=== PATIENT | male | born 1940 | race Caucasian/White ===

== ENCOUNTER 2025-06-02 11:46 | Emergency (ER) | payer OTHER, MEDICARE ==
[2025-06-02 12:30] VITALS: RESP 20
--- NOTE | 2025-06-02 12:39 | ED ---
General Adult HPI - General Chief complaint: Fall Stated complaint: Fall on blood thinners Time Seen by Provider: 06/02/25 12:12 Source: patient, RN notes reviewed Mode of arrival: ambulatory Limitations: no limitations - History of Present Illness Initial comments: Patient is an 85-year-old male presenting to the emergency department following a fall. Patient states he fell, tripped on a rug. Patient struck the left side of his head. Patient may have lost consciousness. Patient did feel stunned for a few minutes. Patient does have some discomfort left side of the face near the eye. No weakness. No confusion. Patient did sustain laceration left eyelid. Unclear last tetanus immunization. Patient also has discomfort left wrist. - Related Data Allergies Allergy/AdvReac Type Severity Reaction Status Date / Time No Known Allergies Allergy Verified 06/02/25 12:18 Review of Systems ROS Statement: Those systems with pertinent positive or pertinent negative responses have been documented in the HPI. ROS Other: All systems not noted in ROS Statement are negative. Constitutional: Denies: fever Eyes: Reports: as per HPI. Denies: eye pain ENT: Denies: ear pain Respiratory: Denies: cough, dyspnea Cardiovascular: Denies: chest pain Endocrine: Denies: fatigue Gastrointestinal: Denies: abdominal pain Musculoskeletal: Reports: as per HPI. Denies: back pain Past Medical History Past Medical History: Unable to Obtain History of Any Multi-Drug Resistant Organisms: None Reported Past Surgical History: Unable to Obtain Past Psychological History: No Psychological Hx Reported Smoking Status: Never smoker Past Alcohol Use History: None Reported Past Drug Use History: None Reported General Exam Limitations: no limitations General appearance: alert Head exam: Present: other (Left forehead and facial ecchymosis. Swelling. Laceration left upper eyelid) Eye exam: Present: normal appearance, PERRL, EOMI ENT exam: Present: normal oropharynx, other (Left zygomatic region tenderness and swelling) Neck exam: Present: normal inspection. Absent: tenderness Respiratory exam: Present: normal lung sounds bilaterally Cardiovascular Exam: Present: regular rate, normal rhythm Expanded Peripheral pulses: 2+: Radial (L) GI/Abdominal exam: Present: soft. Absent: tenderness Extremities exam: Present: tenderness (Tenderness and swelling left wrist near the distal radius. Distal extremity is neurovascular intact.) Back exam: Present: normal inspection. Absent: tenderness, vertebral tenderness Neurological exam: Present: alert, oriented X3, CN II-XII intact. Absent: motor sensory deficit Psychiatric exam: Present: normal affect, normal mood Skin exam: Present: other (Facial ecchymosis) Course Vital Signs 06/02/25 06/02/25 12:16 13:31 Temperature 97.4 F L 98.1 F Pulse Rate 51 L 56 L Respiratory 20 20 Rate Blood Pressure 177/73 110/83 O2 Sat by Pulse 96 Oximetry Procedures - Laceration Laceration #1 Consent Obtained: verbal consent Indication: laceration Site: face (Left eyelid) Size (cm): 1 Description: linear Depth: simple, single layer Pre-repair: wound explored, irrigated extensively Type of Sutures: other (Closed with Dermabond) Patient Tolerated Procedure: well, no complications - Orthopedic Splinting/Casting Injury #1 Side: left Upper Extremity Injury Location: short arm Upper Extremity Immobilizer: volar splint, wrist splint Medical Decision Making - Medical Decision Making Was pt. sent in by a medical professional or institution (, PA, LEAD RIDER, urgent care, hospital, or [facility]...) When possible be specific @ -No Did you speak to anyone other than the patient for history (EMS, parent, family, police, friend...)? What history was obtained from this source @ -No Did you review nursing and triage notes (agree or disagree)? Why? @ -I reviewed and agree with nursing and triage notes Were old charts reviewed (outside hosp., previous admission, EMS record, old EKG, old radiological studies, urgent care reports/EKG's, [facility] records)? Report findings @ -No old charts were reviewed Differential Diagnosis (chest pain, altered mental status, abdominal pain women, abdominal pain men, vaginal bleeding, weakness, fever, dyspnea, syncope, headache, dizziness, GI bleed, back pain, seizure, CVA, palpatations, mental health, musculoskeletal)? @ -Differential Headache: Migraine, tension, cluster, carbon monoxide, central venous thrombosis, pension karma temporal arteritis, acute closure glaucoma, intercranial hemorrhage, mastoiditis, sinusitis, head injury, this is not meant to be an all-inclusive list. EKG interpreted by me (3pts min.). @ -As above X-rays interpreted by me (1pt min.). @ -Left wrist x-ray with degenerative changes. No definitive fracture CT interpreted by me (1pt min.). @ -CT brain with subdural hematoma on the left 4 mm thickness, 7.6 cm length. The additional fractures to the orbital wall and maxillary sinus. No evidence of C-spine injury U/S interpreted by me (1pt. min.). @ -None done What testing was considered but not performed or refused? (CT, X-rays, U/S, labs)? Why? @ -None What meds were considered but not given or refused? Why? @ -None Did you discuss the management of the patient with other professionals (professionals i.e. DrBeto, PA, LE[employer]ER, lab, RT, psych nurse, director of social media marketing, grain distributor, teacher, tactical/mobile watch officer, lining caser)? Give summary @ -Discussed with radiologist Dr. Zhang and reviewed the films [address] morgan at [facility] who will accept transfer. Was smoking cessation discussed for >3mins.? @ -No Was critical care preformed (if so, how long)? @ -41 minutes critical care time Were there social determinants of health that impacted care today? How? (Homelessness, low income, unemployed, alcoholism, drug addiction, transportation, low edu. Level, literacy, decrease access to med. care, long-term, rehab)? @ -No Was there de-escalation of care discussed even if they declined (Discuss DNR or withdrawal of care, Hospice)? DNR status @ -No What co-morbidities impacted this encounter? (DM, HTN, Smoking, COPD, CAD, Cancer, CVA, ARF, Chemo, Hep., AIDS, mental health diagnosis, sleep apnea, morbi d obesity)? @ -Patient on Xarelto with history of DVT Was patient admitted / discharged? Hospital course, mention meds given and route, prescriptions, significant lab abnormalities, going to OR and other pertinent info. @ -Patient had fall and does take Xarelto. Patient did have loss of conscious ness and was dazed for a couple of minutes. Concern for subdural hematoma and facial fractures. Patient to be transferred to trauma center. Patient reevaluated. Patient and family are updated. Decision to transfer at 1300. Undiagnosed new problem with uncertain prognosis? @ -No Drug Therapy requiring intensive monitoring for toxicity (Heparin, Nitro, Insulin, Cardizem)? @ -No Were any procedures done? @ -See above Diagnosis/symptom? @ -Subdural hematoma, orbital fracture, maxillary sinus fracture Acute, or Chronic, or Acute on Chronic? @ -Acute, acute, acute Uncomplicated (without systemic symptoms) or Complicated (systemic symptoms)? @ -Complicated with some air near the orbit Side effects of treatment? @ -No Exacerbation, Progression, or Severe Exacerbation? @ -No Poses a threat to life or bodily function? How? (Chest pain, [place], [place], pneumonia, PE, COPD, DKA, ARF, appy, cholecystitis, CVA, Diverticulitis, Homicidal, Suicidal, threat to staff... and all critical care pts) @ -Threat to neurological function - Lab Data Result diagrams: 06/02/25 13:05 06/02/25 13:05 Lab Results 06/02/25 06/02/25 06/02/25 Range/Units 13:05 13:05 13:05 WBC 10.73 H (4.50-10.00) 10*3/uL RBC 4.47 (4.40-5.60) 10*6/uL Hgb 13.3 (13.0-17.0) g/dL Hct 40.5 (39.6-50.0) % MCV 90.6 (80.0-97.0) fL MCH 29.8 (27.0-32.0) pg MCHC 32.8 (32.0-37.0) g/dL Plt Count 210 (140-440) 10*3/uL MPV 9.9 (9.5-12.2) fL Immature Gran % (Auto) 0.3 % Neutrophils % 74.0 % Lymphocytes % 17.1 % Monocytes % 7.3 % Eosinophils % 0.9 % Basophils % 0.4 % Immature Gran # 0.03 (0.00-0.04) 10*3/uL Neutrophils # 7.94 H (1.80-7.70) 10*3/uL Lymphocytes # 1.84 (0.90-5.00) 10*3/uL Monocytes # 0.78 (0.20-1.00) 10*3/uL Eosinophils # 0.10 (0.04-0.35) 10*3/uL Basophils # 0.04 (0.00-0.10) 10*3/uL PT 12.0 (10.0-12.5) sec INR 1.1 (<1.2) APTT 23.0 (22.0-30.0) sec Sodium 137 (137-145) mmol/L Potassium 4.5 (3.5-5.1) mmol/L Chloride 102 (98-107) mmol/L Carbon Dioxide 27 (22-30) mmol/L Anion Gap 8 mmol/L BUN 24 H (9-20) mg/dL Creatinine 0.98 (0.66-1.25) mg/dL Est GFR (CKD-EPI)AfAm 83 (>60 ml/min/1.73 sqM) Est GFR (CKD-EPI)NonAf 72 (>60 ml/min/1.73 sqM) Glucose 109 H (74-99) mg/dL Calcium 9.5 (8.4-10.2) mg/dL Total Bilirubin 0.7 (0.2-1.3) mg/dL AST 31 (17-59) U/L ALT 27 (4-49) U/L Alkaline Phosphatase 88 (38-126) U/L Total Protein 6.3 (6.3-8.2) g/dL Albumin 3.8 (3.5-5.0) g/dL Critical Care Time Critical Care Time: Yes Disposition Clinical Impression: Subdural hematoma Disposition: OTHER INSTITUTION NOT DEFINED Is patient prescribed a controlled substance at d/c from ED?: No Referrals: Gilles Clarke DO [Primary Care Provider] - 1-2 days Time of Disposition: 13:40 - Out of Hospital Transfer - Req. Specs Out of Hospital Transfer - Requested Specifics: Other Emergency Center
--- NOTE | 2025-06-02 12:56 | CT ---
EXAMINATION TYPE: CT brain cspine wo con, CT facial bones wo con DATE OF EXAM: 06/02/2025 12:28 PM COMPARISON: None. CLINICAL INDICATION: Male, 85 years old with history of fall on thinners; CODE COAG. FALL ON THINNERS /FACIAL INJURY, pain TECHNIQUE: Brain: Multiple axial CT images of the brain were obtained without IV contrast. Cspine: Axial CT images from the skull base to the inferior aspect of T2 we obtained without intraven ous contrast. Coronal and sagittal reformatted images were also reviewed. Facial: Axial imaging of the facial structures with sagittal and coronal reformats. CT DLP: Combined DLP of 1169.9 mGycm, Automated exposure control for dose reduction was used. FINDINGS: Brain: Extra-axial spaces: No abnormal extra-axial fluid collections. High density blood products are seen l ayering along the left frontal lobe measuring up to 4 mm in thickness and 7.6 cm in length. Ventricular system: Within normal limits Cerebral parenchyma: No acute intraparenchymal hemorrhage or mass effect. The mitchell-white junction is well differentiated. Cerebellum: Unremarkable. Mass effect: No evidence of midline shift. Intracranial vasculature: unremarkable Soft tissues: Normal. Calvarium/osseous structures: No depressed skull fracture. Paranasal sinuses and mastoid air cells: Clear. Visualized orbits: Bilateral aphakia Cervical spine: Fracture: None. Osseous structures: Multilevel degenerative disc disease changes with endplate spurring and disc oste ophyte complex's. Vertebral alignment: Within normal limits. Spinal canal/Neural Foramina: No evidence of significant spinal canal narrowing. No evidence for sign ificant neural foraminal stenosis. Neck soft tissues: Prevertebral soft tissues are within normal limits. Other: The airway is patent. The lung apices are clear. Facial: Extensive edema around the left globe and orbit and left face is gas. Acute fractures of the orbit are identified including the inferior orbital wall measuring up to 6 mm inferior displacement. The medial orbital wall more anteriorly with 6 mm displacement. The lateral orbital wall also demonst rates fractures posteriorly laterally obstructive 2 mm displacement series 214 image 72. Globe appear s intact. Bilaterally aphakia The left nasal bone is displaced rightward 3 mm. Fractures of the maxillary sinus are also identified along the medial aspect series 213 image 27 and along the lateral aspect image 31 without to 4 mm displacement. Layering blood persisting within the left maxillary sinus. IMPRESSION: 1. Subdural hemorrhage along the left frontal lobe measuring up to 4 m in thickness and up to 7.6 cm in length. 2. Sequela of facial trauma with left medial an inferior orbital wall fractures with up to 5-6 mm di splacement. The globe appears intact. 3. Maxillary sinus medial and lateral orbital wall fractures with displacement. 4. No evidence for spinal fracture. Findings communicated to Kyler Andre DO on 06/02/2025 12:[address] Afshin Zhang. [facility], , 06/02/2025 12:53 PM
[2025-06-02] MEDS: DIPH,PERTUS(ACELL)TETVAC-LF 0.5 ML VIAL IM ONE (13:08)
[2025-06-02] MEDS: TOPICAL SKIN ADHESIVE 1 EACH AMP TOPICAL ONE (13:08)
[2025-06-02 13:10] LABS: Basophils # (A) 0.04 10*3/uL (0.00-0.10); Basophils % (A) 0.4 %; Eosinophils # (A) 0.10 10*3/uL (0.04-0.35); Eosinophils % (A) 0.9 %; HCT 40.5 % (39.6-50.0); HGB 13.3 g/dL (13.0-17.0); Lymphocytes # (A) 1.84 10*3/uL (0.90-5.00); Lymphocytes % (A) 17.1 %; MCH 29.8 pg (27.0-32.0); MCHC 32.8 g/dL (32.0-37.0); MCV 90.6 fL (80.0-97.0); Monocytes # (A) 0.78 10*3/uL (0.20-1.00); Monocytes % (A) 7.3 %; Neutrophils # (A) 7.94 10*3/uL (1.80-7.70); Neutrophils % (A) 74.0 %; Platelet Count 210 10*3/uL (140-440); RBC 4.47 10*6/uL (4.40-5.60); RDW 13.8 % (11.5-14.5); WBC 10.73 10*3/uL (4.50-10.00)
[2025-06-02] MEDS ORDERED: Kcentra / Balfaxar PER PHARMACY 1 EACH MISC MISCELLANE PRN (13:17)
--- NOTE | 2025-06-02 13:23 | XR ---
EXAMINATION TYPE: XR wrist complete LT DATE OF EXAM: 06/02/2025 12:51 PM INDICATION: Patient age:Male; 85 years old; Reason for study: fall; PHH. pain COMPARISON: None TECHNIQUE: 4 views of the left wrist. Frontal, navicular, lateral, and oblique. FINDINGS: Diffuse bone demineralization. No acute osseous pathology, joint dislocation, or joint effu iván. Degenerative changes of the first CMC joint. Soft tissue swelling of the wrist. Calcification i nvolving the triangular fibrocartilage complex. IMPRESSION: 1. No acute osseous pathology. 2. Soft tissue swelling of the wrist. 3. 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 4. Triangular fibrocartilage complex chondrocalcinosis. [facility], , 06/02/2025 1:21 PM
[2025-06-02 13:24] LABS: INR 1.1 (<1.2); Partial Thromboplastin Time 23.0 sec (22.0-30.0); Prothrombin Time 12.0 sec (10.0-12.5)
[2025-06-02 13:34] VITALS: PULSE 56; TEMP 98.1
[2025-06-02 13:35] LABS: ALT 27 U/L (4-49); AST 31 U/L (17-59); African American GFR (CKD) 83 (>60 ml/min/1.73 sqM); Albumin 3.8 g/dL (3.5-5.0); Alkaline Phosphatase 88 U/L (38-126); Anion Gap 8 mmol/L; Blood Urea Nitrogen 24 mg/dL (9-20); Calcium 9.5 mg/dL (8.4-10.2); Carbon Dioxide 27 mmol/L (22-30); Chloride 102 mmol/L (98-107); Glucose 109 mg/dL (74-99); Non-African American GFR(CKD) 72 (>60 ml/min/1.73 sqM); Potassium 4.5 mmol/L (3.5-5.1); Sodium 137 mmol/L (137-145); Total Protein 6.3 g/dL (6.3-8.2)
[2025-06-02] MEDS: HUMAN PROTHROMBN CMPL BALFAXAR IV ONE (13:38)
[2025-06-02 13:56] VITALS: BP 112/76
[2025-06-02] MEDS: AMPICILLIN-SULBACTAM 1.5 GM in SODIUM CHLORIDE 0.9% 50 ML IVPB STA (13:57)
[2025-06-02] MEDS: ACETAMINOPHEN IV (For NPO) 1,000 MG in EMPTY BAG 1 BAG IVPB STA (13:58)
== END 2025-06-02 13:58 | disposition other institution (70) ==
LOC: EC 11:46
DX: S06.5X1A Traumatic subdural hemorrhage with loss of consciousness of 30 minutes or less, initial encounter (principal); S01.112A Laceration without foreign body of left eyelid and periocular area, initial encounter; S02.40DA Maxillary fracture, left side, initial encounter for closed fracture; M25.532 Pain in left wrist; I82.409 Acute embolism and thrombosis of unspecified deep veins of unspecified lower extremity; Z79.01 Long term (current) use of anticoagulants; Z23 Encounter for immunization; W01.0XXA Fall on same level from slipping, tripping and stumbling without subsequent striking against object, initial encounter
CPT/HCPCS: 36415; 80053; 85025; 85610; 85730; 73110; 72125; 70486; 70450; 90715; 99291; 96365; 90471; 12011; 29125; J7165